=== PATIENT | female | born 1995 | race Caucasian/White ===

== ENCOUNTER → 2023-12-26 14:09 | Outpatient (BNVA) | payer OTHER, SELFPAY | PROVIDERS: Family Provider Nurse Practitioner Family; Visit Provider Nurse Practitioner Family | DX: R53.83 Other fatigue (principal); R41.3 Other amnesia | CPT/HCPCS: 80053; 82306; 82607; 82746; 83550; 84403; 84439; 84443; 84481; 85025; 85651; 86038; 86140; 86200; 86431 ==

== ENCOUNTER 2024-02-25 23:36 | Emergency (ER) | payer OTHER, SELFPAY ==
[2024-02-25 23:50] VITALS: BP 114/77; PULSE 92; RESP 17; TEMP 37.8; O2SAT 99; BMI 23.0
--- NOTE | 2024-02-26 01:47 | ED_ITS ---
HPI - Dental/Oral General: Chief complaint: Dental/Oral Stated complaint: dental pain and swelling Time Seen by Provider: 02/26/24 01:22 History of Present Illness: 28-year-old female whose had a few days of right upper jaw pain. In the last 24 hours she has noted increased swelling, increased pain, and a temperature. Her fever is 100.1 here. No drainage. She has had this problem before. Ibuprofen has not been helping the pain. [facility] ED PFSH: Social History Smoking and tobacco/nicotine status: never used tobacco/nicotine Household members: spouse Physical Exam Const: COMMON NORMALS: no acute distress GENERAL APPEARANCE: cooperative ORIENTATION/CONSCIOUSNESS: Yes awake HENMT: COMMON NORMALS: normocephalic and Normal external nose present HEAD & SCALP: normocephalic FACE & SINUS: edema on the right (Maxillary) and Facial tenderness on exam of face and sinuses; no erythema NOSE: Normal external nose present and Normal nares present MOUTH: tongue normal TEETH & GINGIVA: Yes abnormal tooth and associated gingiva (Right upper molar swelling tenderness) THROAT: posterior oropharynx normal Eye: COMMON NORMALS: Equal, round and reactive pupils present and EOMs intact bilaterally PUPIL: Yes Equal, round and reactive pupils present Neck/C-Spine: GENERAL: Yes trachea midline and No anterior neck swelling Chest: CHEST: Yes Symmetrical chest wall rise Resp: COMMON NORMALS: normal respiratory effort and No use of accessory muscles Course Vital Signs: Vital signs: Vital Signs Temperature 100.1 F H 02/25/24 23:50 Pulse Rate 92 02/25/24 23:50 Respiratory Rate 14 02/26/24 02:10 Blood Pressure 114/77 02/25/24 23:50 Pulse Oximetry 99 02/25/24 23:50 Oxygen Delivery Me thod Room Air 02/25/24 23:50 MDM - Dental/Oral Medical Decision Making She has significant swelling, with dental abscess formation. Will alternate hydrocodone and ketorolac. She will be placed on antibiotics. She is given a dose of dexamethasone here for the swelling. Dental follow-up. No radiology studies performed this visit Discharge Plan Discharge Patient Disposition: Home Clinical Impression: Dental abscess Condition: Stable Prescriptions: New hydrocodone-acetaminophen 5-325 mg tablet 1 tab PO Q8H PRN (Reason: pain) Qty: 7 0RF ketorolac 10 mg tablet 10 mg PO TID PRN (Reason: pain) Qty: 10 0RF clindamycin HCl 300 mg capsule 300 mg PO Q6H 10 Days Qty: 40 0RF No Action cephalexin 500 mg capsule 500 mg PO TID 10 Days Qty: 30 0RF pantoprazole [Protonix] 40 mg tablet,delayed release (DR/EC) 40 mg PO DAILY 30 Days Qty: 30 2RF cholecalciferol (vitamin D3) 125 mcg (5,000 unit) capsule 125 mcg PO DAILY 90 Days Qty: 90 1RF Discharge Orders: Discharge ED (Routine); Ordered 02/26/24 Ordered By: Simon Caraballo Referrals: Abdoulaye,ANDRES Abreu [Primary Care Provider] - Patient Instructions: Dental Abscess (ED), Opioid Safety, Pain Management Activity Restrictions/Additional Instructions: Call your dentist on Tuesday for an appointment. Antibiotics as directed. Alternate medications for pain as needed. Ice may help as well. Coding Level of Care Code ED [employer] for Lakshmi Aguirre
[2024-02-26 02:04] VITALS: RESP 14
[2024-02-26] MEDS: oxyCODONE-APAP 5-325 mg Tablet 2 TAB PO (02:04)
[2024-02-26] MEDS: clindamycin 150 mg Capsule 600 MG PO (02:04)
[2024-02-26] MEDS: dexamethasone 4 mg Tablet 10 MG PO (02:05)
[2024-02-26 02:10] VITALS: RESP 14
== END 2024-02-26 02:15 | disposition home or self-care (01) ==
PROVIDERS: Emergency Provider Emergency Medicine; PCP Nurse Practitioner Family
DX: K04.7 Periapical abscess without sinus (principal)
CPT/HCPCS: 99283; J8540